=== PATIENT | male | born 1980 | race Two or more races ===

== ENCOUNTER 2018-04-02 20:40 | Emergency (ER) | payer SELFPAY ==
[~2018-04-02] VITALS: Ht 180.3 cm; Wt 75.0 kg
[2018-04-02 20:59] VITALS: BP 151/89
== END 2018-04-02 23:05 | disposition left against medical advice (07) ==
LOC: ER 20:40
DX: R07.89 Other chest pain (principal); M54.2 Cervicalgia; M25.511 Pain in right shoulder; K08.89 Other specified disorders of teeth and supporting structures; F12.10 Cannabis abuse, uncomplicated; Z98.890 Other specified postprocedural states; Z53.21 Procedure and treatment not carried out due to patient leaving prior to being seen by health care provider
CPT/HCPCS: 93005